=== PATIENT | female | born 1950 | race Two or more races ===

== ENCOUNTER 2018-03-27 11:37 | Inpatient (IN) | payer OTHER ==
[~2018-03-27] VITALS: Ht 162.6 cm; Wt 93.0 kg
[2018-04-16] MEDS ORDERED: LOSARTAN-HCTZ1 EAC1 PO (13:28)
[2018-04-16] MEDS ORDERED: ZOCOR40 MG PO (13:29)
[2018-04-16] MEDS ORDERED: TOPROL XL25 M1 PO (13:29)
[2018-04-16] MEDS ORDERED: OMEPRAZOLE40 MG PO (13:29)
[2018-04-16] MEDS ORDERED: ZANTAC300 MG PO (13:30)
[2018-04-16] MEDS ORDERED: HORIZANT300 MG PO (13:30)
[2018-04-16] MEDS ORDERED: NEURIN (13:31)
[2018-04-24] MEDS ORDERED: MOTRIN IB200 MG PO (13:30)
[2018-04-24] MEDS ORDERED: MIRALAX17 GM PO (13:31)
[2018-04-24] MEDS ORDERED: GABAPENTIN300 MG PO (13:31)
== END 2018-04-24 13:43 | disposition home or self-care (01) | DRG 328 ==
LOC: OB/GYN 04-22 05:45 → O/R 04-22 05:45 → RECOVERY 04-22 07:00 → OB/GYN 04-23 08:48
PROVIDERS: ADMIT Surgery
PROC: 0DS64ZZ Reposition Stomach, Percutaneous Endoscopic Approach (ICD-10-PCS; 2018-04-22)
PROC: 0DV44ZZ Restriction of Esophagogastric Junction, Percutaneous Endoscopic Approach (ICD-10-PCS; 2018-04-22)
PROC: 0DJ08ZZ Inspection of Upper Intestinal Tract, Via Natural or Artificial Opening Endoscopic (ICD-10-PCS; 2018-04-22)
PROC: 0BUT4JZ Supplement Diaphragm with Synthetic Substitute, Percutaneous Endoscopic Approach (ICD-10-PCS; principal; 2018-04-22 07:00)
DX: K44.9 Diaphragmatic hernia without obstruction or gangrene (principal); R13.19 Other dysphagia; K31.89 Other diseases of stomach and duodenum; G62.89 Other specified polyneuropathies; I10 Essential (primary) hypertension; E78.00 Pure hypercholesterolemia, unspecified

== ENCOUNTER 2018-06-01 09:58 | Outpatient (CLI) | payer OTHER ==
[~2018-06-01 09:58] MED LIST: GABAPENTIN300 MG PO; HORIZANT300 MG PO; LOSARTAN-HCTZ1 EAC1 PO; MIRALAX17 GM PO; MOTRIN IB200 MG PO; NEURIN; OMEPRAZOLE40 MG PO; TOPROL XL25 M1 PO; ZANTAC300 MG PO; ZOCOR40 MG PO
== END 2018-06-01 10:14 | disposition home or self-care (01) ==
LOC: RX STUDY 09:58
DX: R13.19 Other dysphagia (principal)